=== PATIENT | male | born 1950 | race Caucasian/White ===

== ENCOUNTER 2019-05-12 14:11 | Day surgery (SDC) | payer MEDICARE, BC ==
[~2019-05-12 14:11] MED LIST: CEFAZOLIN 2 GM/50 ML (PMX) 50 ML IVPB
[2019-05-12] MEDS: INSULIN REGULAR, HUMAN 100 UNIT/1 ML 3ML VIAL SC (15:40)
[2019-05-12] MEDS ORDERED: LACTATED RINGER'S 1,000 ML IV (16:00)
[2019-05-12] MEDS ORDERED: POLYMYXIN B 500000 UNIT INJ (16:44)
[2019-05-12] MEDS ORDERED: morphine 2 MG INJ IV (17:00)
[2019-05-12] MEDS ORDERED: FENTAnyl 50 MCG/ML VIAL IV (17:00)
[2019-05-12] MEDS ORDERED: ONDANSETRON 4 MG INJ IV ×2 (17:00→18:00)
[2019-05-12] MEDS ORDERED: LABETALOL HCL 20MG INJ IV (17:00)
[2019-05-12] MEDS ORDERED: EPHEDrine 25 MG/5 ML SYG IV (17:00)
[2019-05-12] MEDS ORDERED: hydrALAzine 20 MG INJ IV (17:00)
[2019-05-12] MEDS ORDERED: OXYCODONE/ACETAMINOPHEN (5/325) TAB PO ×2 (17:00→18:00)
[2019-05-12] MEDS ORDERED: PROPOFOL 40 ML (17:07)
[2019-05-12] MEDS ORDERED: FENTAnyl 50 MCG/ML VIAL (17:07)
[2019-05-12] MEDS ORDERED: MIDAZOLAM 1 MG/ML 2 ML INJ (17:07)
[2019-05-12] MEDS ORDERED: CEFAZOLIN 1 GM INJ (17:07)
[2019-05-12] MEDS ORDERED: METOCLOPRAMIDE 10 MG INJ (17:24)
[2019-05-12] MEDS ORDERED: KETOROLAC 30 MG INJ (17:24)
[2019-05-12] MEDS ORDERED: DEXAMETHASONE 4 MG/ML 5 ML INJ (17:24)
[2019-05-12] MEDS ORDERED: ONDANSETRON 4 MG INJ (17:24)
[2019-05-12] MEDS: LIDOCAINE 1% (MPF) 30 ML INJ (17:35)
[2019-05-12] MEDS: BACITRACIN/POLYMYXIN 28.35 GM OINT TOP (17:40)
== END 2019-05-12 18:44 | disposition home or self-care (01) ==
LOC: SDS 14:11
DX: E11.621 Type 2 diabetes mellitus with foot ulcer (principal); L97.522 Non-pressure chronic ulcer of other part of left foot with fat layer exposed; E11.52 Type 2 diabetes mellitus with diabetic peripheral angiopathy with gangrene; I96 Gangrene, not elsewhere classified; I25.10 Atherosclerotic heart disease of native coronary artery without angina pectoris; Z95.1 Presence of aortocoronary bypass graft; E11.42 Type 2 diabetes mellitus with diabetic polyneuropathy
CPT/HCPCS: 11042; 82962; 87070; 87075; 87102

== ENCOUNTER 2019-05-15 14:52 | Emergency (ER) | payer MEDICARE, BC ==
[2019-05-15 15:23] LABS: ADD MAN DIFF? NO
[2019-05-15 15:30] LABS: WHITE BLOOD COUNT 8.4 10^3/ul (4.8-10.8)
[2019-05-15 15:30] LABS: BASOPHIL # 0.1 10^3/ul (0.0-0.1); BASOPHILS % 0.6 % (0.0-2.0); EOSINOPHILS % 0.2 % (0.0-7.0); HEMATOCRIT 43.5 % (42.0-52.0); HEMOGLOBIN 14.4 g/dl (14.0-18.0); LYMPHOCYTES % 12.3 % (15.0-51.0); MEAN CORPUSCULAR HEMOGLOBIN 30.2 pg (29.0-33.0); MEAN CORPUSCULAR HGB CONC 33.1 g/dl (32.0-37.0); MEAN CORPUSCULAR VOLUME 91.2 fl (82.0-101.0); MEAN PLATELET VOLUME 10.9 fl (7.4-10.4); MONOCYTE # 0.7 10^3/ul (0.3-0.9); MONOCYTES % 7.8 % (0.0-11.0); NEUTROPHIL # 6.6 10^3/ul (1.6-7.5); PLATELET COUNT 325 10^3/UL (140-415); RED BLOOD COUNT 4.77 10^6/ul (4.70-6.10); RED CELL DISTRIBUTION WIDTH 12.7 % (11.5-14.5)
[2019-05-15 15:49] LABS: ANION GAP 16 (5-13); BLOOD UREA NITROGEN 21 mg/dl (7-20); C-REACTIVE PROTEIN 0.6 mg/dl (0.0-0.9); CALCIUM 9.6 mg/dl (8.4-10.2); CARBON DIOXIDE 18 mmol/L (21-31); CHLORIDE 101 mmol/L (97-110); CREATININE 1.09 mg/dl (0.61-1.24); Estimated GFR > 60 mL/min (>60); GLUCOSE 214 mg/dl (70-220); SODIUM 135 mmol/L (135-144)
[2019-05-15] MEDS: SOD CHLORIDE 0.9% 1,000 ML IV (16:13)
[2019-05-15 16:56] LABS: ERYTHROCYTE SEDIMENTATION RATE 26 mm/Hr (0-20)
[2019-05-15] MEDS: ONDANSETRON 4 MG INJ IV (17:22)
== END 2019-05-15 18:32 | disposition home or self-care (01) ==
LOC: E/R 18:32
DX: R11.0 Nausea (principal); E86.0 Dehydration; E87.2 Acidosis; I10 Essential (primary) hypertension; E11.9 Type 2 diabetes mellitus without complications; T36.8X5A Adverse effect of other systemic antibiotics, initial encounter; Z79.4 Long term (current) use of insulin
CPT/HCPCS: 73620; 80048; 85025; 85651; 86140; 93005; 96374; 99285-25

== ENCOUNTER 2019-06-14 05:13 | Day surgery (SDC) | payer MEDICARE, BC ==
[2019-06-14] MEDS ORDERED: CEFAZOLIN 2 GM/50 ML (PMX) 50 ML IVPB (06:00)
[2019-06-14] MEDS ORDERED: DEXTROSE 5%-0.45% NACL 1,000 ML IV (06:00)
[2019-06-14] MEDS ORDERED: MINERAL OIL LIGHT 10 ML VIAL (07:00)
[2019-06-14] MEDS ORDERED: LIDOCAINE 1% (MPF) 30 ML INJ (11:25)
[2019-06-14] MEDS ORDERED: HYDROmorphONE 1 MG/5 ML IV SYRINGE IV ×2 (11:30)
[2019-06-14] MEDS ORDERED: LABETALOL HCL 20MG INJ IV (11:30)
[2019-06-14] MEDS ORDERED: FENTAnyl 50 MCG/ML VIAL IV ×2 (11:30)
[2019-06-14] MEDS ORDERED: PROPOFOL 20 ML (11:55)
[2019-06-14] MEDS ORDERED: FENTAnyl 50 MCG/ML VIAL (11:56)
[2019-06-14] MEDS ORDERED: MIDAZOLAM 1 MG/ML 2 ML INJ (11:56)
[2019-06-14] MEDS ORDERED: hydrALAzine 20 MG INJ (12:19)
[2019-06-14] MEDS: LIDOCAINE 1% (MPF) 30 ML INJ (12:20)
[2019-06-14] MEDS: POLYMYXIN/BACITRACIN 1L IRRIG (12:20)
[2019-06-14] MEDS: hydrALAzine 20 MG INJ IV (13:02)
== END 2019-06-14 13:39 | disposition home or self-care (01) ==
LOC: SDS 05:13
DX: E11.621 Type 2 diabetes mellitus with foot ulcer (principal); E11.42 Type 2 diabetes mellitus with diabetic polyneuropathy; E11.65 Type 2 diabetes mellitus with hyperglycemia; Z79.82 Long term (current) use of aspirin; Z79.84 Long term (current) use of oral hypoglycemic drugs; Z79.4 Long term (current) use of insulin; I10 Essential (primary) hypertension
CPT/HCPCS: 11043; 82962